=== PATIENT | female | born 1960 | race African-American/Black ===

== ENCOUNTER 2016-05-28 12:12 | Emergency (ER) | payer OTHER ==
[~2016-05-28 12:12] MED LIST: BUDE9TAB PO; CLON0.5T3 PO; CYCL15CA14 PO; DICY20TA3 PO; GLIM2TAB2 PO; IRON50VI2 IV; MESA1.2T PO; MESA4ENE3 RC; OMEG500C PO; OMEP40CA2 PO; ONDA4TAB10 PO; OXYC5CAP3 PO; RIZA10TA10 PO; TOPI50TA4 PO
[2016-05-28] MEDS ORDERED: IV NORMAL SALINE 1000ML BAG 1,000 ML IV SCH (13:23)
[2016-05-28] MEDS ORDERED: ONDANSETRON PF 4 MG/2 ML VIAL. IV ONE (13:30)
[2016-05-28] MEDS ORDERED: FENTANYL PF 100 MCG/2 ML VIAL. IV PRN (13:30)
[2016-05-28 13:37] LABS: BASO # 0.1 x10^3/uL (0.0-0.2); BASO % 1 % (0-3); BILIRUBIN,URINE NEGATIVE (NEG); EOS % 0 % (0-3); GLUCOSE,URINE NEGATIVE (NEG); HEMATOCRIT 40.2 % (36.0-47.0); HEMOGLOBIN 13.3 g/dL (12.0-15.5); LYMPH % 18 % (24-48); MEAN CORPUSCULAR HEMOGLOBIN 29 pg (25-35); MEAN CORPUSCULAR HGB CONC 33 g/dL (31-37); MEAN CORPUSCULAR VOLUME 89 fL (79-100); MONO % 10 % (0-9); NEUT % 72 % (31-73); NITRITE,URINE NEGATIVE (NEG); PH,URINE 6.5; PLATELET COUNT 196 x10^3/uL (140-400); PROTEIN,URINE NEGATIVE (NEG-TRACE); RED BLOOD COUNT 4.51 x10^6/uL (3.50-5.40); UROBILINOGEN,URINE 0.2 mg/dL (0.2 mg/dL); WHITE BLOOD COUNT 5.8 x10^3/uL (4.0-11.0)
[2016-05-28 13:50] LABS: CREATININE 0.6 mg/dL (0.6-1.0); GFR 124.7; POTASSIUM 3.1 mmol/L (3.5-5.1)
[2016-05-28 13:56] LABS: ALBUMIN 3.7 g/dL (3.4-5.0); ALBUMIN/GLOBULIN RATIO 1.1 (1.0-1.7); TOTAL BILIRUBIN 0.4 mg/dL (0.2-1.0); TOTAL PROTEIN 7.2 g/dL (6.4-8.2)
--- NOTE | 2016-05-28 14:07 | PHYS DOC ---
Past Medical History Past Medical History: Other Additional Past Medical Histor: TBI X3,ULCERATIVE COLITIS,GERD Past Surgical History: Cholecystectomy, Hysterectomy, Tonsillectomy, Other Additional Past Surgical Histo: Lt.shoulder,ocular implants, cataracts, rt.lumpectomy,septum, Alcohol Use: None Drug Use: None Adult General Chief Complaint Chief Complaint: FEVER HPI HPI Patient is a 55 year old female who presents with multiple complaints, however primary complaint is fever. Patient states her symptoms have been present since yesterday. Patient states that she had a cystoscopy 2 days ago that was uneventful. The patient states that starting yesterday she did not feel well which progressed to noticing a fever. Patient states that her temperature max at home was 100.4F. Patient states that she has had coughing that has not been productive of sputum. Patient also has had nausea and decreased appetite. Patient states that she has developed intermittent pelvic pain which she describes as sharp. Patient also states that she is having bilateral low back pain. The patient has been taking [id number] medication with no significant relief in symptoms. Patient came to the emergency department due to concerns for possible severe infection. Review of Systems Review of Systems Constitutional: Fever [] Eyes: Denies change in visual acuity, redness, or eye pain [] HENT: Sore throat [] Respiratory: Cough [] Cardiovascular: No additional information not addressed in HPI [] GI: Nausea, lower abdominal pain, denies vomiting, bloody stools or diarrhea [] : Denies dysuria or hematuria [] Musculoskeletal: Low back pain [] Integument: Denies rash or skin lesions [] Neurologic: Headache, denies focal weakness or sensory changes [] Endocrine: Denies polyuria or polydipsia [] Current Medications Current Medications Current Medications Medications (Trade) Dose Ordered Sig/Gus Start Time Stop Time Status Last Admin Dose Admin Fentanyl Citrate 50 mcg 50 mcg PRN Q15MIN PRN 05/28/16 13:30 05/28/16 18:03 DC 05/28/16 14:17 50 MCG Info (Do NOT chart on this entry -- for MONITORING) 1 each PRN DAILY PRN 05/28/16 15:15 05/28/16 18:03 DC Iohexol (Omnipaque 300 Mg/ml) 75 ml 1X ONCE 05/28/16 15:15 05/28/16 15:16 DC 05/28/16 15:28 75 ML Ondansetron HCl (Zofran) 4 mg 1X ONCE 05/28/16 13:30 05/28/16 13:31 DC 05/28/16 14:17 4 MG Oseltamivir Phosphate (Tamiflu) 75 mg 1X ONCE 05/28/16 17:15 05/28/16 17:16 DC 05/28/16 17:15 75 MG Potassium Chloride (Klor-Con) 40 meq 1X ONCE 05/28/16 17:15 05/28/16 17:16 DC 05/28/16 17:15 40 MEQ Sodium Chloride (Iv Sodium Chloride 0.9% 1000ml Bag) 1,000 ml @ 1,000 mls/hr Q1H 05/28/16 13:23 05/28/16 14:22 DC 05/28/16 13:23 1,000 MLS/HR Allergies Allergies Allergies Coded Allergies Type Severity Reaction Last Updated Verified pregabalin Allergy Severe unclear 11/02/14 Yes Sulfa (Sulfonamide Antibiotics) Allergy Intermediate unknown 11/02/14 Yes acetaminophen Allergy Intermediate unknown 11/02/14 Yes adhesive Allergy Intermediate 11/02/14 Yes amitriptyline Allergy Intermediate unknown 11/02/14 Yes budesonide Allergy Intermediate unknown 11/02/14 Yes chocolate flavor Allergy Intermediate sneeze, throat burn 11/02/14 Yes mirtazapine Allergy Intermediate unknown 11/02/14 Yes povidone-iodine Allergy Intermediate burning skin 11/02/14 Yes quetiapine Allergy Intermediate unknown 11/02/14 Yes tramadol Allergy Intermediate unknown 11/02/14 Yes NSAIDS (Non-Steroidal Anti-Inflamma Adverse Reaction Severe GIBLEED 11/02/14 Yes aspirin Adverse Reaction Severe gi bleeding 11/02/14 Yes fluoxetine Adverse Reaction Severe "made me want to cut my skin off with a knife" 11/02/14 Yes ibuprofen Adverse Reaction Severe GI BLEEDING 11/02/14 Yes trazodone Adverse Reaction Severe severe chest pain 11/02/14 Yes erythromycin base Adverse Reaction Intermediate vomit 11/02/14 Yes Physical Exam Physical Exam Constitutional: Alert, afebrile, appears in mild discomfort. [] HENT: Normocephalic, atraumatic, bilateral external ears normal, oropharynx erythematous, no oral exudates, nose normal. [] Eyes: PERRLA, EOMI, conjunctiva normal, no discharge. [] Neck: Normal range of motion, no tenderness, supple, no stridor. [] Cardiovascular:Heart rate regular rhythm, no murmur [] Lungs & Thorax: Bilateral breath sounds clear to auscultation [] Abdomen: Bowel sounds normal, soft, no tenderness, no masses, no pulsatile masses. [] Skin: Warm, dry, no erythema, no rash. [] Back: No tenderness, no CVA tenderness. [] Extremities: No tenderness, no cyanosis, no clubbing, ROM intact, no edema. [] Neurologic: Alert and oriented X 3, normal motor function, normal sensory function, no focal deficits noted. [] Current Patient Data Vital Signs Vital Signs Date Time Temp Pulse Resp B/P Pulse Ox O2 Delivery O2 Flow Rate FiO2 05/28/16 15:59 89 119/74 05/28/16 14:21 96 05/28/16 14:17 14 05/28/16 12:59 99.3 Room Air 99.3 Lab Values Laboratory Tests Test 05/28/16 13:25 05/28/16 14:13 05/28/16 14:19 05/28/16 14:32 White Blood Count 5.8x10^3/uL (4.0-11.0) Red Blood Count 4.51x10^6/uL (3.50-5.40) Hemoglobin 13.3g/dL (12.0-15.5) Hematocrit 40.2% (36.0-47.0) Mean Corpuscular Volume 89fL (79-100) Mean Corpuscular Hemoglobin 29pg (25-35) Mean Corpuscular Hemoglobin Concent 33g/dL (31-37) Red Cell Distribution Width 13.0% (11.5-14.5) Platelet Count 196x10^3/uL (140-400) Neutrophils (%) (Auto) 72% (31-73) Lymphocytes (%) (Auto) 18% (24-48) L Monocytes (%) (Auto) 10% (0-9) H Eosinophils (%) (Auto) 0% (0-3) Basophils (%) (Auto) 1% (0-3) Neutrophils # (Auto) 4.2x10^3uL (1.8-7.7) Lymphocytes # (Auto) 1.0x10^3/uL (1.0-4.8) Monocytes # (Auto) 0.6x10^3/uL (0.0-1.1) Eosinophils # (Auto) 0.0x10^3/uL (0.0-0.7) Basophils # (Auto) 0.1x10^3/uL (0.0-0.2) Urine Collection Type Unknown Urine Color Yellow Urine Clarity Clear Urine pH 6.5 Urine Specific [place] 1.010 Urine Protein Negativemg/dL (NEG-TRACE) Urine Glucose (UA) Negativemg/dL (NEG) Urine Ketones (Stick) Negativemg/dL (NEG) Urine Blood Moderate (NEG) Urine Nitrite Negative (NEG) Urine Bilirubin Negative (NEG) Urine Urobilinogen Dipstick 0.2mg/dL (0.2 mg/dL) Urine Leukocyte Esterase Negative (NEG) Urine RBC 20-40/HPF (0-2) Urine WBC 0/HPF (0-4) Urine Bacteria 0/HPF (0-FEW) Sodium Level 138mmol/L (136-145) Potassium Level 3.1mmol/L (3.5-5.1) L Chloride Level 101mmol/L (98-107) Carbon Dioxide Level 27mmol/L (21-32) Anion Gap 10 (6-14) Blood Urea Nitrogen 9mg/dL (7-20) Creatinine 0.6mg/dL (0.6-1.0) Estimated GFR (Cockcroft-Gault) 124.7 BUN/Creatinine Ratio 15 (6-20) Glucose Level 106mg/dL (70-99) H Calcium Level 9.0mg/dL (8.5-10.1) Total Bilirubin 0.4mg/dL (0.2-1.0) Aspartate Amino Transferase (AST) 33U/L (15-37) Alanine Aminotransferase (ALT) 57U/L (14-59) Alkaline Phosphatase 85U/L (46-116) Total Protein 7.2g/dL (6.4-8.2) Albumin 3.7g/dL (3.4-5.0) Albumin/Globulin Ratio 1.1 (1.0-1.7) Lipase 148U/L (73-393) Influenza Type A Antigen Positive (NEGATIVE) Influenza Type B Antigen Negative (NEGATIVE) Group A Streptococcus Rapid Negative (NEGATIVE) Glucose (Fingerstick) 98mg/dL (70-99) Laboratory Tests 05/28/16 13:25 Laboratory Tests 05/28/16 13:25 EKG EKG Not performed [] Radiology/Procedures Radiology/Procedures [facility] [address] [place] [address] IMAGING REPORT Signed PATIENT: MENG SMITH ACCOUNT: [id number] : 1960 LOCATION: ER AGE: 55 SEX: F EXAM STATUS: REG ER ORD. PHYSICIAN: TRISTON GARCIA MD REASON: cough, abdominal pain PROCEDURE: ACUTE ABDOMEN SERIES ACUTE ABDOMEN SERIES History:cough, abdominal pain, bladder pain and fever Comparison: 06/20/2012 Findings:Single view chest, single upright view of the abdomen, 2 supine views of abdomen are submitted. There is no infiltrate or pleural fluid. There has been cholecystectomy. No free air is identified. There is scattered stool in the colon. There are some segments of gas distended bowel more central abdominal region possibly in the small bowel although there is some gas in the colon. Impression: 1.There some gaseous distention of likely small bowel more central abdominal region, consideration of partial obstruction or segmental ileus. DICTATED and SIGNED BY: KARMA POOL MD DATE: 05/28/16 1405 CC: TRISTON GARCIA MD; AGA CHOI MD ~ [] Course & Med Decision Making Course & Med Decision Making Pertinent Labs and Imaging studies reviewed. (See chart for details) The patient was pending CT results at time of handoff. Care of patient was transferred to Dr. Alfred at 1530. Drag Disclaimer Dragon Disclaimer This electronic medical record was generated, in whole or in part, using a voice recognition dictation system. Departure Departure Impression: Primary Impression: Influenza A Disposition: 01 HOME, SELF-CARE Condition: IMPROVED Referrals: AGA CHOI MD (PCP) Scripts Oseltamivir Phosphate (Tamiflu)75 Mg Capsule1 Cap PO BID #[id number] CAP Prov:CALISTA ALFRED MD 05/28/16 TRISTON GARCIA MD May 28, 2016 14:06
--- NOTE | 2016-05-28 14:10 | RAD ---
ACUTE ABDOMEN SERIES History:cough, abdominal pain, bladder pain and fever Comparison: 06/20/2012 Findings:Single view chest, single upright view of the abdomen, 2 supine views of abdomen are submitted. There is no infiltrate or pleural fluid. There has been cholecystectomy. No free air is identified. There is scattered stool in the colon. There are some segments of gas distended bowel more central abdominal region possibly in the small bowel although there is some gas in the colon. Impression: 1.There some gaseous distention of likely small bowel more central abdominal region, consideration of partial obstruction or segmental ileus.
[2016-05-28 14:21] LABS: BACTERIA,URINE 0 /HPF (0-FEW); RBC,URINE 20-40 /HPF (0-2); WBC,URINE 0 /HPF (0-4)
[2016-05-28] MEDS ORDERED: CONTRAST GIVEN MC PRN (15:15)
[2016-05-28] MEDS ORDERED: IOHEXOL 300 MG/ML 75 ML VIAL IV ONE (15:15)
--- NOTE | 2016-05-28 15:53 | RAD ---
CT abdomen pelvis with contrast Indication: Bilateral flank pain and pelvic pain. Axial imaging through the abdomen and pelvis was performed after the administration of intravenous contrast. Correlation is made with prior CT from 06/20/2012. The lung bases are clear. The liver is unremarkable. The gallbladder is surgically absent. Pancreas and spleen are unremarkable. No adrenal mass is detected. Kidneys are unremarkable. The aorta is unremarkable. There is no ascites. There is a large amount of stool throughout the colon suggestive of constipation. The bladder and uterus are unremarkable. No acute inflammatory process in the abdomen or pelvis is identified. Impression: Moderate stool in the colon suggestive of constipation. The study is otherwise unremarkable. Electronically signed by: Santiago Harmon MD (May 28, 2016 15:51:24)
[2016-05-28 15:59] VITALS: BP 119/74
[2016-05-28 16:10] LABS: OBC FLU VALID
[2016-05-28] MEDS ORDERED: POTASSIUM CHLORIDE 20 MEQ TABLET.ER. PO ONE (17:15)
[2016-05-28] MEDS ORDERED: OSELTAMIVIR 75 MG CAPSULE PO ONE (17:15)
[2016-05-28] MEDS ORDERED: OSEL75CA PO (17:23)
--- NOTE | 2016-05-28 18:58 | EKG ---
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
[2016-05-29 10:52] LABS: NEGATIVE OBC STREP NEG; POSITIVE OBC STREP POS
== END 2016-05-28 18:03 | disposition home or self-care (01) ==
LOC: ER 12:12
DX: J09.X2 Influenza due to identified novel influenza A virus with other respiratory manifestations (principal); Z87.820 Personal history of traumatic brain injury; Z90.710 Acquired absence of both cervix and uterus; Z90.49 Acquired absence of other specified parts of digestive tract; Z88.2 Allergy status to sulfonamides; Z88.6 Allergy status to analgesic agent; Z88.1 Allergy status to other antibiotic agents; Z88.8 Allergy status to other drugs, medicaments and biological substances; Z91.018 Allergy to other foods
CPT/HCPCS: 36415; 74022; 74177; 80053; 81001; 82947; 83690; 85027; 87070; 87804; 87880; 93005; 96361; 96374; 96375; 99285; J2405; J3010; J7030; Q9967

== ENCOUNTER 2018-03-15 14:33 | Observation (INO) | payer OTHER ==
[~2018-03-15] VITALS: Ht 162.6 cm; Wt 94.5 kg
[~2018-03-15 14:33] MED LIST changes: +CLON0.5T11 PO; -CLON0.5T3 PO; -CYCL15CA14 PO; +CYCL15CA19 PO; +OSEL75CA PO; +OXYC5CAP PO; -OXYC5CAP3 PO; -TOPI50TA4 PO; +TOPI50TA8 PO
--- NOTE | 2018-03-15 15:01 | PHYS DOC ---
Past Medical History Past Medical History: Other Additional Past Medical Histor: TBI X3,ULCERATIVE COLITIS,GERD Past Surgical History: Cholecystectomy, Hysterectomy, Tonsillectomy, Other Additional Past Surgical Histo: Lt.shoulder,ocular implants, cataracts, rt.lumpectomy,septum, Alcohol Use: None Drug Use: None Adult General Chief Complaint Chief Complaint: CHEST PAIN HPI HPI Patient is a 57 year old F p/w two hours persistent chest pain diffuse pain, all across the chest. radiates into the neck and jaw area bilateral and also in the left shoudler. a/w sob lighteahdedness and some clamminess. diaphoresis noted. sublingual nitro was given. improved the pain 10--> 7/10. no hx of cad. pmh: dm, adrenal tumor? ulcerative colitis. sob slightly worse with lying flat. Review of Systems Review of Systems Constitutional: Denies fever or chills [] Eyes: Denies change in visual acuity, redness, or eye pain [] HENT: Denies nasal congestion or sore throat [] GI: Denies abdominal pain, nausea, vomiting, bloody stools or diarrhea [] : Denies dysuria or hematuria [] Musculoskeletal: Denies back pain or joint pain [] Integument: Denies rash or skin lesions [] Neurologic: Denies headache, focal weakness or sensory changes [] Endocrine: Denies polyuria or polydipsia [] All other systems were reviewed and found to be within normal limits, except as documented in this note. Current Medications Current Medications Current Medications Medications (Trade) Dose Ordered Sig/Gus Start Time Stop Time Status Last Admin Dose Admin Info (CONTRAST GIVEN -- Rx MONITORING) 1 each PRN DAILY PRN 03/15/18 16:30 03/17/18 16:29 Iohexol (Omnipaque 300 Mg/ml) 100 ml 1X ONCE 03/15/18 16:15 03/15/18 16:19 DC 03/15/18 16:28 100 ML Nitroglycerin (Nitrostat) 0.4 mg PRN Q5MIN PRN 03/15/18 17:30 Oxycodone HCl (Roxicodone) 10 mg 1X ONCE 03/15/18 17:00 03/15/18 17:01 DC 03/15/18 17:30 10 MG Allergies Allergies Allergies Coded Allergies Type Severity Reaction Last Updated Verified pregabalin Allergy Severe unclear 7/19/15 Yes Sulfa (Sulfonamide Antibiotics) Allergy Intermediate unknown 11/02/14 Yes acetaminophen Allergy Intermediate unknown 11/02/14 Yes adhesive Allergy Intermediate 11/02/14 Yes amitriptyline Allergy Intermediate unknown 11/02/14 Yes budesonide Allergy Intermediate unknown 11/02/14 Yes chocolate flavor Allergy Intermediate sneeze, throat burn 11/02/14 Yes mirtazapine Allergy Intermediate unknown 11/02/14 Yes povidone-iodine Allergy Intermediate burning skin 11/02/14 Yes quetiapine Allergy Intermediate unknown 11/02/14 Yes tramadol Allergy Intermediate unknown 11/02/14 Yes NSAIDS (Non-Steroidal Anti-Inflamma Adverse Reaction Severe GIBLEED 11/02/14 Yes aspirin Adverse Reaction Severe gi bleeding 11/02/14 Yes fluoxetine Adverse Reaction Severe "made me want to cut my skin off with a knife" 11/02/14 Yes ibuprofen Adverse Reaction Severe GI BLEEDING 11/02/14 Yes trazodone Adverse Reaction Severe severe chest pain 11/02/14 Yes erythromycin base Adverse Reaction Intermediate vomit 11/02/14 Yes Physical Exam Physical Exam Constitutional: Well developed, well nourished, no acute distress, non-toxic appearance. [] HENT: Normocephalic, atraumatic, bilateral external ears normal, oropharynx moist, no oral exudates, nose normal. [] Eyes: PERRLA, EOMI, conjunctiva normal, no discharge. [] Neck: Normal range of motion, no tenderness, supple, no stridor. [] Cardiovascular:Heart rate regular rhythm, no murmur [] Lungs & Thorax: Bilateral breath sounds clear to auscultation [] Abdomen: Bowel sounds normal, soft, mild nonspeicifc tenderness, no masses, no pulsatile masses. [] Skin: Warm, dry, no erythema, no rash. [] Back: No tenderness, no CVA tenderness. [] Extremities: No tenderness, no cyanosis, no clubbing, ROM intact, no edema. [] Neurologic: Alert and oriented X 3, normal motor function, normal sensory function, no focal deficits noted. [] Psychologic: Affect normal, judgement normal, mood normal. Current Patient Data Vital Signs Vital Signs Date Time Temp Pulse Resp B/P (MAP) Pulse Ox O2 Delivery O2 Flow Rate FiO2 03/15/18 15:50 76 18 136/77 (96) 98 Room Air 03/15/18 14:52 98.1 98.1 Lab Values Laboratory Tests Test 03/15/18 14:47 03/15/18 17:27 White Blood Count 8.1 x10^3/uL (4.0-11.0) Red Blood Count 4.79 x10^6/uL (3.50-5.40) Hemoglobin 14.7 g/dL (12.0-15.5) Hematocrit 43.0 % (36.0-47.0) Mean Corpuscular Volume 90 fL (79-100) Mean Corpuscular Hemoglobin 31 pg (25-35) Mean Corpuscular Hemoglobin Concent 34 g/dL (31-37) Red Cell Distribution Width 13.3 % (11.5-14.5) Platelet Count 268 x10^3/uL (140-400) Neutrophils (%) (Auto) 48 % (31-73) Lymphocytes (%) (Auto) 42 % (24-48) Monocytes (%) (Auto) 9 % (0-9) Eosinophils (%) (Auto) 1 % (0-3) Basophils (%) (Auto) 1 % (0-3) Neutrophils # (Auto) 3.9 x10^3uL (1.8-7.7) Lymphocytes # (Auto) 3.4 x10^3/uL (1.0-4.8) Monocytes # (Auto) 0.7 x10^3/uL (0.0-1.1) Eosinophils # (Auto) 0.1 x10^3/uL (0.0-0.7) Basophils # (Auto) 0.1 x10^3/uL (0.0-0.2) Prothrombin Time 11.6 SEC (11.7-14.0) L Prothrombin Time INR 0.9 (0.8-1.1) Sodium Level 140 mmol/L (136-145) Potassium Level 3.4 mmol/L (3.5-5.1) L Chloride Level 103 mmol/L (98-107) Carbon Dioxide Level 28 mmol/L (21-32) Anion Gap 9 (6-14) Blood Urea Nitrogen 14 mg/dL (7-20) Creatinine 0.8 mg/dL (0.6-1.0) Estimated GFR (Cockcroft-Gault) 88.8 BUN/Creatinine Ratio 18 (6-20) Glucose Level 117 mg/dL (70-99) H Calcium Level 9.5 mg/dL (8.5-10.1) Total Bilirubin 0.5 mg/dL (0.2-1.0) Aspartate Amino Transferase (AST) 18 U/L (15-37) Alanine Aminotransferase (ALT) 29 U/L (14-59) Alkaline Phosphatase 88 U/L (46-116) Troponin I Quantitative < 0.017 ng/mL (0.000-0.055) HH-Eje-Z-Type Natriuretic Peptide 31 pg/mL (0-124) Total Protein 7.9 g/dL (6.4-8.2) Albumin 4.2 g/dL (3.4-5.0) Albumin/Globulin Ratio 1.1 (1.0-1.7) Lipase 154 U/L (73-393) Glucose (Fingerstick) 85 mg/dL (70-99) Laboratory Tests 03/15/18 14:47 Laboratory Tests 03/15/18 14:47 EKG EKG nsr rate 81 no acute ischemic chagnes noted no stemi or st depression.s[] Radiology/Procedures Radiology/Procedures [] Impressions: IMPRESSION: 1. No aortic dissection. 2. Mild urinary bladder wall thickening and perivesical induration. Suggest correlation with urinalysis to exclude cystitis. 3. 8 mm groundglass nodule in the anterior left upper lobe. Recommend noncontrast CT chest in 6-12 months per Fleischner Society guidelines. 4. Left adrenal adenoma. 5. There is prominent intramural fat of the descending and sigmoid colon which may be sequela of prior inflammation. No evidence of acute colitis. Electronically signed by: Obinna Finney MD (03/15/2018 4:58 PM) [id number] DICTATED and SIGNED BY: Yao FINNEY Course & Med Decision Making Course & Med Decision Making Pertinent Labs and Imaging studies reviewed. (See chart for details) 57-year-old female multiple medical problems apparently borderline diabetic ulcerative colitis on Remicade and prednisone presenting with sudden onset chest pain really into the back. Patient is well-appearing in the emergency room however did have a somewhat concerning history and so CT dissection protocol was ordered which was negative. I did tell the patient and her family about the need for follow-up due to the lung nodule in addition I have added on a urinalysis and I recommended follow-up for the bladder wall thickening. Troponin and EKG are negative patient is well-appearing improved pain in the emergency room with nitroglycerin at this point time I spoke with Dr. García admitted to hospital for further evaluation of chest pain. Of note patient tells me that she is Slowly not able to get a regadenosine stress test. [] Dragon Disclaimer Dragon Disclaimer This electronic medical record was generated, in whole or in part, using a voice recognition dictation system. Departure Departure Impression: Primary Impression: Chest pain Disposition: ADMITTED INPATIENT Admitting Physician: Leelee Soni Condition: STABLE Referrals: AGA CHOI MD (PCP) NORMA ALMAGUER MD Mar 15, 2018 15:01
--- NOTE | 2018-03-15 15:02 | EKG ---
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
[2018-03-15 15:04] LABS: BASO # 0.1 x10^3/uL (0.0-0.2); BASO % 1 % (0-3); EOS # 0.1 x10^3/uL (0.0-0.7); EOS % 1 % (0-3); HEMOGLOBIN 14.7 g/dL (12.0-15.5); LYMPH # 3.4 x10^3/uL (1.0-4.8); LYMPH % 42 % (24-48); MEAN CORPUSCULAR HEMOGLOBIN 31 pg (25-35); MEAN CORPUSCULAR HGB CONC 34 g/dL (31-37); MEAN CORPUSCULAR VOLUME 90 fL (79-100); MONO # 0.7 x10^3/uL (0.0-1.1); MONO % 9 % (0-9); NEUT # 3.9 x10^3uL (1.8-7.7); NEUT % 48 % (31-73); PLATELET COUNT 268 x10^3/uL (140-400); RED BLOOD COUNT 4.79 x10^6/uL (3.50-5.40); RED CELL DISTRIBUTION WIDTH 13.3 % (11.5-14.5); WHITE BLOOD COUNT 8.1 x10^3/uL (4.0-11.0)
[2018-03-15 15:13] LABS: PROTHROMBIN TIME PATIENT 11.6 SEC (11.7-14.0)
[2018-03-15 15:20] LABS: CALCIUM 9.5 mg/dL (8.5-10.1); CREATININE 0.8 mg/dL (0.6-1.0); GFR 88.8; POTASSIUM 3.4 mmol/L (3.5-5.1)
[2018-03-15 15:26] LABS: ALBUMIN 4.2 g/dL (3.4-5.0); ALBUMIN/GLOBULIN RATIO 1.1 (1.0-1.7); TOTAL BILIRUBIN 0.5 mg/dL (0.2-1.0); TOTAL PROTEIN 7.9 g/dL (6.4-8.2)
--- NOTE | 2018-03-15 15:26 | RAD ---
Single view of the chest. 03/15/2018 3:00 PM Indication: CHEST AND BACK PAIN, SHORT OF AIR Comparison: None available Findings: There is no focal consolidation. There is no pleural effusion or pneumothorax. The cardiomediastinal silhouette and pulmonary vasculature are within normal limits. No acute osseous abnormalities are seen. Impression: No evidence of acute cardiopulmonary process. Electronically signed by: Abdullahi Mendoza MD (03/15/2018 3:23 PM) [id number]
[2018-03-15] MEDS ORDERED: IOHEXOL 300 MG/ML 100ML VIAL. IV ONE (16:15)
[2018-03-15] MEDS ORDERED: CONTRAST GIVEN. MC PRN (16:30)
[2018-03-15] MEDS ORDERED: oxyCODONE IR 5 MG TABLET PO ONE (17:00)
--- NOTE | 2018-03-15 17:02 | RAD ---
PQRS Compliance Statement: One or more of the following individualized dose reduction techniques were utilized for this examination: 1. Automated exposure control 2. Adjustment of the mA and/or kV according to patient size 3. Use of iterative reconstruction technique CT ANGIO CHEST ABD PELVIS Clinical Indication: SUDDEN ONSET CHEST NECK JAW SHOULDER PAIN, EPIGASTRIC PAIN Comparison: CT abdomen and pelvis with contrast, May 28, 2016. TECHNIQUE: Helical CT imaging of the chest abdomen and pelvis is performed before and after 100 cc of Omnipaque [address] angiogram protocol. 3-D MIP and volume rendering reconstructions of the aorta performed. Findings: On the precontrast images, there is no acute intramural hematoma of the aorta. There is no appreciable atherosclerotic disease. Aortic arch branches are patent. The great vessels are normal caliber. No large central pulmonary embolus. There is no aortic dissection. Abdominal aorta branches are patent. The abdominal aorta is normal in caliber. The iliac arteries and visualized femoral arteries are patent without focal stenosis. Thyroid is symmetric. There is no adenopathy in the chest. Cardiac size normal, no pericardial effusion. There is no pleural effusion. Central airways are patent. There is an 8 mm groundglass nodule in the anterior left upper lobe, image 33 of series 4. Minimal dependent atelectasis in the left lower lobe. Cholecystectomy. Liver, spleen, pancreas, and right adrenal gland are normal. There is 1.6 cm left adrenal adenoma. Kidneys enhance symmetrically, no hydronephrosis. Stomach unremarkable. Tiny duodenal diverticulum, image 112. Tiny fat-containing umbilical hernia. No dilated small bowel. Colon is decompressed, limiting evaluation. There is prominent intramural fat of the descending and sigmoid colon which may be sequela of prior inflammation. No colon wall thickening is identified. The appendix is normal. No abdominal adenopathy or free fluid. Mild urinary bladder wall thickening and perivesical induration. Uterus atrophic or surgically absent. Ovaries are symmetric. No pelvic free fluid. No compression fracture in the thoracolumbar spine. L1 vertebral body hemangioma. IMPRESSION: 1. No aortic dissection. 2. Mild urinary bladder wall thickening and perivesical induration. Suggest correlation with urinalysis to exclude cystitis. 3. 8 mm groundglass nodule in the anterior left upper lobe. Recommend noncontrast CT chest in 6-12 months per Fleischner Society guidelines. 4. Left adrenal adenoma. 5. There is prominent intramural fat of the descending and sigmoid colon which may be sequela of prior inflammation. No evidence of acute colitis. Electronically signed by: Obinna Finney MD (03/15/2018 4:58 PM) [id number]
[2018-03-15] MEDS ORDERED: NITROGLYCERIN SUBLINGUAL 0.4 MG BOTTLE OF 25. SL PRN (17:30)
[2018-03-15 18:18] LABS: BILIRUBIN,URINE NEGATIVE (NEG); CLARITY,URINE CLEAR; COLOR,URINE YELLOW; NITRITE,URINE NEGATIVE (NEG); PROTEIN,URINE NEGATIVE (NEG-TRACE); UROBILINOGEN,URINE 0.2 mg/dL (0.2 mg/dL)
[2018-03-15 18:36] LABS: BACTERIA,URINE 0 /HPF (0-FEW); WBC,URINE 0 /HPF (0-4)
[2018-03-15 19:04] VITALS: BP 149/80
[2018-03-15] MEDS ORDERED: LACT1CAP PO (20:28)
[2018-03-15] MEDS ORDERED: VALIUM10 MG PO (20:28)
[2018-03-15] MEDS ORDERED: PSYL1CAP4 PO (20:28)
[2018-03-15] MEDS ORDERED: INFL100V IV (20:28)
[2018-03-15] MEDS ORDERED: PANT40GR PO (20:28)
[2018-03-15] MEDS ORDERED: METH-37 PO (20:28)
[2018-03-15] MEDS ORDERED: CETI10TA22 PO (20:28)
[2018-03-15] MEDS ORDERED: MESA1.2T PO (20:28)
[2018-03-15] MEDS ORDERED: POTA10TA12 PO (20:28)
[2018-03-15] MEDS ORDERED: DIAZ5TAB PO (20:28)
[2018-03-15] MEDS ORDERED: SERT50TA8 PO (20:28)
[2018-03-15] MEDS ORDERED: CHOL10003 PO (20:28)
[2018-03-15] MEDS ORDERED: CYAN10005 PO (20:28)
[2018-03-15] MEDS ORDERED: OXYC10TA PO (20:28)
[2018-03-15] MEDS ORDERED: PRED-220 PO (20:28)
[2018-03-15] MEDS ORDERED: PSYLLIUM HUSK (SUGAR FREE) 1 PKT PACKET PO SCH (21:00)
[2018-03-15] MEDS ORDERED: OXYCODONE HCL 10 MG PO PRN (21:00)
[2018-03-15] MEDS ORDERED: METHOCARBAMOL 500 MG TABLET PO PRN (21:00)
[2018-03-15] MEDS ORDERED: diazePAM 5 MG TABLET PO SCH ×2 (21:00→21:15)
[2018-03-15] MEDS: POTASSIUM CHLORIDE 10 MEQ TABLET.ER. PO SCH (21:31)
[2018-03-15] MEDS: oxyCODONE IR 5 MG TABLET PO PRN (21:33)
[2018-03-15 22:04] VITALS: BP 120/74
--- NOTE | 2018-03-15 22:58 | HP ---
ADMIT DATE: 03/15/2018 CHIEF COMPLAINT: Chest pain. HISTORY OF PRESENT ILLNESS: The patient is a pleasant 57-year-old female who presents with 2 hours of chest pain. This has been persistent and diffuse, across her chest, radiates to the neck and jaw. She also has some left shoulder pain, rates it 10/10. She received some nitroglycerin that seemed to help a little. Moving makes it worse. I have discussed the case with the ER physician. We are going to admit the patient and consult Cardiology. PAST MEDICAL HISTORY: Traumatic brain injury, ulcerative colitis, GERD, cholecystectomy, hysterectomy, tonsillectomy, left shoulder surgery, cataract surgery, lumpectomy and nasal septum surgery. ALLERGIES: None. FAMILY HISTORY: Coronary artery disease. SOCIAL HISTORY: She does not drink, smoke or take drugs. MEDICATIONS: Reviewed. Please refer to the MRAD. She is on aspirin, vitamins and statins. REVIEW OF SYSTEMS: GENERAL: No history of weight change, weakness or fevers. SKIN: No bruising, hair changes or rashes. EYES: No blurred, double or loss of vision. NOSE AND THROAT: No history of nosebleeds, hoarseness or sore throat. HEART: No history of palpitations or shortness of breath on exertion. She complains of chest pain. LUNGS: Denies cough, hemoptysis, wheezing or shortness of breath. GASTROINTESTINAL: Denies changes in appetite, nausea, vomiting, diarrhea or constipation. GENITOURINARY: No history of frequency, urgency, hesitancy or nocturia. NEUROLOGIC: Denies history of numbness, tingling, tremor or weakness. PSYCHIATRIC: No history of panic, anxiety or depression. ENDOCRINE: No history of heat or cold intolerance, polyuria or polydipsia. EXTREMITIES: Denies muscle weakness, joint pain, pain on walking or stiffness. PHYSICAL EXAMINATION: VITAL SIGNS: Temperature afebrile, pulse 74, respirations 20 and blood pressure 133/91. GENERAL: She is alert, cooperative, anxious. HEART: Normal S1, S2, without murmurs. LUNGS: Clear to auscultation. ABDOMEN: Soft. Decreased bowel sounds. No organomegaly. EXTREMITIES: With 1+ edema. Pedal pulses are intact. SKIN: No rashes. ENDOCRINE: No thyromegaly. LYMPHATICS: No cervical nodes. HEMATOPOIETIC: No bruising. NEUROLOGIC: She is moving all extremities. PSYCHIATRIC: She is anxious. LABORATORY DATA: Troponin is 0. EKG shows sinus rhythm. ASSESSMENT AND PLAN: Chest pain, rule out coronary artery disease. The patient has been admitted. We will check serial enzymes and serial EKGs. Consult Cardiology, daily aspirin, cardiac monitoring, home meds, PT, OT and frequent labs. FRANCESCA HERNANDEZ DO DR: JUDE/micheal JOB#: [id number] / [id number]
[2018-03-16 03:00] VITALS: BP 100/60
[2018-03-16 04:33] LABS: CHOLESTEROL/HDL RATIO 4.4
[2018-03-16 07:00] VITALS: BP 119/55
[2018-03-16] MEDS ORDERED: PANTOPRAZOLE 40 MG TABLET.DR. PO SCH (07:30)
[2018-03-16] MEDS ORDERED: CETIRIZINE HCL 10 MG TABLET. PO SCH (08:00)
[2018-03-16] MEDS: oxyCODONE IR 5 MG TABLET PO PRN (08:05)
[2018-03-16] MEDS ORDERED: LACTOBACILLUS RHAMNOSUS GG 1 CAPSULE. PO SCH (09:00)
[2018-03-16] MEDS ORDERED: SERTRALINE 50 MG TABLET. PO SCH (09:00)
[2018-03-16] MEDS ORDERED: CHOLECALCIFEROL (VITAMIN D3) 1,000 UNIT TABLET PO SCH (09:00)
[2018-03-16] MEDS ORDERED: predniSONE 10 MG TABLET PO SCH (09:00)
[2018-03-16] MEDS ORDERED: diazePAM 5 MG TABLET PO SCH (09:00)
[2018-03-16] MEDS ORDERED: CYANOCOBALAMIN (VITAMIN B-12) 1,000 MCG TABLET. PO SCH (09:00)
[2018-03-16] MEDS ORDERED: MESALAMINE 1.2 GM TABLET.DR PO SCH (09:00)
--- NOTE | 2018-03-16 09:02 | PDOC2 ---
HUSSAIN WYLIE SAL[employer]OP[employer]OCIATE 03/16/18 0902: CARDIAC CONSULT DATE OF CONSULT Date of Consult DATE: 03/16/18 TIME: 08:46 REASON FOR CONSULT Reason for Consult: Chest pain REFERRING PHYSICIAN Referring Physician: Ema SOURCE Source: Chart review, Patient HISTORY OF PRESENT ILLNESS HISTORY OF PRESENT ILLNESS This is an anxious 57 yo female admitted for complains of chest pain. Reports that yesterday she was having multiple bouts of diarrhea ranging from losse to watery but no blood. She was belching a lot as well with occasional nausea, all started yesterday morning. She has been on remicade IV infusion with her 3rd dose 3 days ago for her ulcerative colitis. She is also on a tapering dose of prednisone. She has not been sleeping well and takes valium every night and takes opioid and has been chronic for this and last night as an inpt was asking multiple times for dilaudid. There has been no changes to her activity tolerance but admits being tired during the day with ESTRELLA at times. She snores and has insomnia. Yesterday around 1 PM she started having mid chest pressure that radiates to her immediate back. It did go to her neck and both shoulders and felt some SOA.. Denies any palpitations and no recent injury or falls. PAST MEDICAL HISTORY Cardiovascular: Hyperlipidemia, Other (orthostasis) CENTRAL NERVOUS SYSTEM: Periperal neuropathy, Other (TBI) GI: Inflam bowel disease PAST SURGICAL HISTORY Past Surgical History: Arthroscopy (left shoulder), Cholecystectomy, Cataract Removal, Tonsillectomy, Hysterectomy, Other (nasal septum repair) FAMILY HISTORY Family History: Coronary Artery Disease (mother), Diabetes SOCIAL HISTORY Smoke: No ALCOHOL: other (2 shots of wine biweekly) Drugs: None Lives: with Family CURRENT MEDICATIONS CURRENT MEDICATIONS Current Medications Medications (Trade) Dose Ordered Sig/Gus Route PRN Reason Start Time Stop Time Status Last Admin Dose Admin Iohexol (Omnipaque 300 Mg/ml) 100 ml 1X ONCE IV 03/15/18 16:15 03/15/18 16:19 DC 03/15/18 16:28 Oxycodone HCl (Roxicodone) 10 mg 1X ONCE PO 03/15/18 17:00 03/15/18 17:01 DC 03/15/18 17:30 Oxycodone HCl (Roxicodone) 10 mg PRN Q4HRS PRN PO PAIN 03/15/18 21:00 03/16/18 08:05 Diazepam (Valium) 5 mg DAILY PO 03/16/18 09:00 03/16/18 08:05 Potassium Chloride (Klor-Con) 10 meq BID PO 03/15/18 21:00 03/15/18 21:31 Prednisone (Prednisone) 10 mg QODAY PO 03/16/18 09:00 03/16/18 08:05 Sertraline HCl (Zoloft) 50 mg DAILY PO 03/16/18 09:00 03/16/18 08:04 Pantoprazole Sodium (Protonix) 40 mg DAILYAC PO 03/16/18 07:30 03/16/18 08:05 Diazepam (Valium) 10 mg HS PO 03/15/18 21:00 03/15/18 21:31 ALLERGIES ALLERGIES: Coded Allergies: pregabalin (Verified Allergy, Severe, unclear, 11/02/14) Sulfa (Sulfonamide Antibiotics) (Verified Allergy, Intermediate, unknown, 11/02/14) acetaminophen (Verified Allergy, Intermediate, unknown, 11/02/14) adhesive (Verified Allergy, Intermediate, 11/02/14) amitriptyline (Verified Allergy, Intermediate, unknown, 11/02/14) budesonide (Verified Allergy, Intermediate, unknown, 11/02/14) chocolate flavor (Verified Allergy, Intermediate, sneeze, throat burn, ) mirtazapine (Verified Allergy, Intermediate, unknown, 11/02/14) povidone-iodine (Verified Allergy, Intermediate, burning skin, 11/02/14) quetiapine (Verified Allergy, Intermediate, unknown, 11/02/14) tramadol (Verified Allergy, Intermediate, unknown, 11/02/14) NSAIDS (Non-Steroidal Anti-Inflamma (Verified Adverse Reaction, Severe, GIBLEED, 11/02/14) aspirin (Verified Adverse Reaction, Severe, gi bleeding, 11/02/14) states" my gi bleeding is in remission now." fluoxetine (Verified Adverse Reaction, Severe, "made me want to cut my skin off with a knife", 11/02/14) ibuprofen (Verified Adverse Reaction, Severe, GI BLEEDING, 11/02/14) "GI BLEEDING IS CURRENTLY IN REMISSION" trazodone (Verified Adverse Reaction, Severe, severe chest pain, 11/02/14) erythromycin base (Verified Adverse Reaction, Intermediate, vomit, 11/02/14 ) ROS Review of System 14 point ROS evaluated with pertinent positives noted per HPI PHYSICAL EXAM General: Alert, Oriented X3, Cooperative, No acute distress HEENT: Mucous membr. moist/pink Lungs: Clear to auscultation, Normal air movement Heart: Regular rate (SR), Normal S1, Normal S2, No murmurs Abdomen: Soft, No tenderness Extremities: No cyanosis, No edema Skin: No breakdown, No significant lesion Neuro: Normal speech, Sensation intact Psych/Mental Status: Mental status NL, Mood NL MUSCULOSKELETAL: Osteoarthritic changes both hands VITALS VITALS Vital Signs Date Time Temp Pulse Resp B/P (MAP) Pulse Ox O2 Delivery O2 Flow Rate FiO2 03/16/18 08:05 20 96 03/16/18 07:00 98.0 69 119/55 (76) Room Air 98.0 LABS Lab: Laboratory Tests Test 03/15/18 14:47 03/15/18 17:27 03/15/18 18:05 03/15/18 20:29 White Blood Count 8.1 x10^3/uL (4.0-11.0) Red Blood Count 4.79 x10^6/uL (3.50-5.40) Hemoglobin 14.7 g/dL (12.0-15.5) Hematocrit 43.0 % (36.0-47.0) Mean Corpuscular Volume 90 fL (79-100) Mean Corpuscular Hemoglobin 31 pg (25-35) Mean Corpuscular Hemoglobin Concent 34 g/dL (31-37) Red Cell Distribution Width 13.3 % (11.5-14.5) Platelet Count 268 x10^3/uL (140-400) Neutrophils (%) (Auto) 48 % (31-73) Lymphocytes (%) (Auto) 42 % (24-48) Monocytes (%) (Auto) 9 % (0-9) Eosinophils (%) (Auto) 1 % (0-3) Basophils (%) (Auto) 1 % (0-3) Neutrophils # (Auto) 3.9 x10^3uL (1.8-7.7) Lymphocytes # (Auto) 3.4 x10^3/uL (1.0-4.8) Monocytes # (Auto) 0.7 x10^3/uL (0.0-1.1) Eosinophils # (Auto) 0.1 x10^3/uL (0.0-0.7) Basophils # (Auto) 0.1 x10^3/uL (0.0-0.2) Prothrombin Time 11.6 SEC (11.7-14.0) Prothromb Time International Ratio 0.9 (0.8-1.1) Sodium Level 140 mmol/L (136-145) Potassium Level 3.4 mmol/L (3.5-5.1) Chloride Level 103 mmol/L (98-107) Carbon Dioxide Level 28 mmol/L (21-32) Anion Gap 9 (6-14) Blood Urea Nitrogen 14 mg/dL (7-20) Creatinine 0.8 mg/dL (0.6-1.0) Estimated GFR (Cockcroft-Gault) 88.8 BUN/Creatinine Ratio 18 (6-20) Glucose Level 117 mg/dL (70-99) Calcium Level 9.5 mg/dL (8.5-10.1) Total Bilirubin 0.5 mg/dL (0.2-1.0) Aspartate Amino Transf (AST/SGOT) 18 U/L (15-37) Alanine Aminotransferase (ALT/SGPT) 29 U/L (14-59) Alkaline Phosphatase 88 U/L (46-116) Troponin I Quantitative < 0.017 ng/mL (0.000-0.055) WI-Qwa-C-Type Natriuretic Peptide 31 pg/mL (0-124) Total Protein 7.9 g/dL (6.4-8.2) Albumin 4.2 g/dL (3.4-5.0) Albumin/Globulin Ratio 1.1 (1.0-1.7) Lipase 154 U/L (73-393) Glucose (Fingerstick) 85 mg/dL (70-99) 158 mg/dL (70-99) Urine Collection Type Unknown Urine Color Yellow Urine Clarity Clear Urine pH 6.0 Urine Specific [place] >=1.030 Urine Protein Negative mg/dL (NEG-TRACE) Urine Glucose (UA) Negative mg/dL (NEG) Urine Ketones (Stick) Negative mg/dL (NEG) Urine Blood Small (NEG) Urine Nitrite Negative (NEG) Urine Bilirubin Negative (NEG) Urine Urobilinogen Dipstick 0.2 mg/dL (0.2 mg/dL) Urine Leukocyte Esterase Negative (NEG) Urine RBC 6-10 /HPF (0-2) Urine WBC 0 /HPF (0-4) Urine Bacteria 0 /HPF (0-FEW) Test 03/15/18 20:45 03/16/18 03:30 03/16/18 07:27 Troponin I Quantitative < 0.017 ng/mL (0.000-0.055) < 0.017 ng/mL (0.000-0.055) Triglycerides Level 190 mg/dL (0-150) Cholesterol Level 259 mg/dL (0-200) LDL Cholesterol, Calculated 162 mg/dL (0-100) VLDL Cholesterol, Calculated 38 mg/dL (0-40) Non-HDL Cholesterol Calculated 200 mg/dL (0-129) HDL Cholesterol 59 mg/dL (40-60) Cholesterol/HDL Ratio 4.4 Glucose (Fingerstick) 91 mg/dL (70-99) ASSESSMENT/PLAN ASSESSMENT/PLAN 1. Chest pain: mixed features. doubt ACS. suspect significant dyspepsia likely exacerbated by remicade and prednisone treatment 2. Opioid seeking behavior: on oxycodone at home, asking for dilaudid last night 3. Presyncope: vasovagal. BP has been stable all night, no arrhythmias 4. Ulcerative colitis/diarrhea: multiple loose/watery stools/significant belching yesterday 5. Suspect ARIANA 6. Obesity 7. Uncontrolled anxiety: contributing to her symptoms as well. defer to PCP 8. HLP Recommendations 1. Recommend outpt ARIANA workup 2. TTE today and note WM and EF. If unremarkable may DC per cardiac standpoint. 3. Push PO fluids. Continue with PPI. Follow up with her GI specialist. Will defer to PCP. 4. Would recommend statin therapy. 5. Tropoinin has been normal, EKG SR without acute changes. Address GI symptoms per PCP and symptoms persist as an outpt then will consider for outpt stress test EDA CRUM MD 03/16/18 188: CARDIAC CONSULT ASSESSMENT/PLAN ASSESSMENT/PLAN Patient seen and examined. Agree with WOUND CARE RN's assessment and plan. CP with mixed features GA ruled out 2D echo showed normal LVF without any WMA Plan for ischemic eval as outpatient Thank you for your consultation HUSSAIN WYLIE APRN Mar 16, 2018 09:02 EDA CRUM MD Mar 16, 2018 19:11
[2018-03-16] MEDS: POTASSIUM CHLORIDE 10 MEQ TABLET.ER. PO SCH (09:06)
[2018-03-16 11:00] VITALS: BP 126/74
--- NOTE | 2018-03-16 11:28 | PDOC ---
PROGRESS NOTES Chief Complaint Chief Complaint Chest pain History of Present Illness History of Present Illness Seen and examined patient this morning. Discussed with patient that she is scheduled for an Echo today and if normal expect to discharge home. Her was present Vitals Vitals Vital Signs Date Time Temp Pulse Resp B/P (MAP) Pulse Ox O2 Delivery O2 Flow Rate FiO2 03/16/18 09:05 18 96 Room Air 03/16/18 07:00 98.0 69 119/55 (76) 98.0 Physical Exam General: Alert, Oriented X3, Cooperative, No acute distress Heart: Regular rate (SR), Normal S1, Normal S2, No murmurs Abdomen: Soft, No tenderness Extremities: No cyanosis, No edema Skin: No breakdown, No significant lesion Labs LABS Laboratory Tests Test 03/15/18 14:47 03/15/18 17:27 03/15/18 18:05 03/15/18 20:29 White Blood Count 8.1 x10^3/uL (4.0-11.0) Red Blood Count 4.79 x10^6/uL (3.50-5.40) Hemoglobin 14.7 g/dL (12.0-15.5) Hematocrit 43.0 % (36.0-47.0) Mean Corpuscular Volume 90 fL (79-100) Mean Corpuscular Hemoglobin 31 pg (25-35) Mean Corpuscular Hemoglobin Concent 34 g/dL (31-37) Red Cell Distribution Width 13.3 % (11.5-14.5) Platelet Count 268 x10^3/uL (140-400) Neutrophils (%) (Auto) 48 % (31-73) Lymphocytes (%) (Auto) 42 % (24-48) Monocytes (%) (Auto) 9 % (0-9) Eosinophils (%) (Auto) 1 % (0-3) Basophils (%) (Auto) 1 % (0-3) Neutrophils # (Auto) 3.9 x10^3uL (1.8-7.7) Lymphocytes # (Auto) 3.4 x10^3/uL (1.0-4.8) Monocytes # (Auto) 0.7 x10^3/uL (0.0-1.1) Eosinophils # (Auto) 0.1 x10^3/uL (0.0-0.7) Basophils # (Auto) 0.1 x10^3/uL (0.0-0.2) Prothrombin Time 11.6 SEC (11.7-14.0) Prothromb Time International Ratio 0.9 (0.8-1.1) Sodium Level 140 mmol/L (136-145) Potassium Level 3.4 mmol/L (3.5-5.1) Chloride Level 103 mmol/L (98-107) Carbon Dioxide Level 28 mmol/L (21-32) Anion Gap 9 (6-14) Blood Urea Nitrogen 14 mg/dL (7-20) Creatinine 0.8 mg/dL (0.6-1.0) Estimated GFR (Cockcroft-Gault) 88.8 BUN/Creatinine Ratio 18 (6-20) Glucose Level 117 mg/dL (70-99) Calcium Level 9.5 mg/dL (8.5-10.1) Total Bilirubin 0.5 mg/dL (0.2-1.0) Aspartate Amino Transf (AST/SGOT) 18 U/L (15-37) Alanine Aminotransferase (ALT/SGPT) 29 U/L (14-59) Alkaline Phosphatase 88 U/L (46-116) Troponin I Quantitative < 0.017 ng/mL (0.000-0.055) UZ-Oun-C-Type Natriuretic Peptide 31 pg/mL (0-124) Total Protein 7.9 g/dL (6.4-8.2) Albumin 4.2 g/dL (3.4-5.0) Albumin/Globulin Ratio 1.1 (1.0-1.7) Lipase 154 U/L (73-393) Glucose (Fingerstick) 85 mg/dL (70-99) 158 mg/dL (70-99) Urine Collection Type Unknown Urine Color Yellow Urine Clarity Clear Urine pH 6.0 Urine Specific [place] >=1.030 Urine Protein Negative mg/dL (NEG-TRACE) Urine Glucose (UA) Negative mg/dL (NEG) Urine Ketones (Stick) Negative mg/dL (NEG) Urine Blood Small (NEG) Urine Nitrite Negative (NEG) Urine Bilirubin Negative (NEG) Urine Urobilinogen Dipstick 0.2 mg/dL (0.2 mg/dL) Urine Leukocyte Esterase Negative (NEG) Urine RBC 6-10 /HPF (0-2) Urine WBC 0 /HPF (0-4) Urine Bacteria 0 /HPF (0-FEW) Test 03/15/18 20:45 03/16/18 03:30 03/16/18 07:27 Troponin I Quantitative < 0.017 ng/mL (0.000-0.055) < 0.017 ng/mL (0.000-0.055) Triglycerides Level 190 mg/dL (0-150) Cholesterol Level 259 mg/dL (0-200) LDL Cholesterol, Calculated 162 mg/dL (0-100) VLDL Cholesterol, Calculated 38 mg/dL (0-40) Non-HDL Cholesterol Calculated 200 mg/dL (0-129) HDL Cholesterol 59 mg/dL (40-60) Cholesterol/HDL Ratio 4.4 Glucose (Fingerstick) 91 mg/dL (70-99) Review of Systems Review of Systems Heart: chest pain reported to be better today GI: denies nausea/vomiting Lung: Denies soa Assessment and Plan Assessmemt and Plan Assessment: 1. Atypical angina (possible GERD) Plan: 1. Echo today 2. serial enzymes 3. serial EKGs 4. PT/OT 5. home meds 6. frequent labs 7. probable discharge pending echo results. Comment Review of Relevant I have reviewed the following items violette (where applicable) has been applied. Labs Laboratory Tests Test 03/15/18 14:47 03/15/18 17:27 03/15/18 18:05 03/15/18 20:29 White Blood Count 8.1 x10^3/uL (4.0-11.0) Red Blood Count 4.79 x10^6/uL (3.50-5.40) Hemoglobin 14.7 g/dL (12.0-15.5) Hematocrit 43.0 % (36.0-47.0) Mean Corpuscular Volume 90 fL (79-100) Mean Corpuscular Hemoglobin 31 pg (25-35) Mean Corpuscular Hemoglobin Concent 34 g/dL (31-37) Red Cell Distribution Width 13.3 % (11.5-14.5) Platelet Count 268 x10^3/uL (140-400) Neutrophils (%) (Auto) 48 % (31-73) Lymphocytes (%) (Auto) 42 % (24-48) Monocytes (%) (Auto) 9 % (0-9) Eosinophils (%) (Auto) 1 % (0-3) Basophils (%) (Auto) 1 % (0-3) Neutrophils # (Auto) 3.9 x10^3uL (1.8-7.7) Lymphocytes # (Auto) 3.4 x10^3/uL (1.0-4.8) Monocytes # (Auto) 0.7 x10^3/uL (0.0-1.1) Eosinophils # (Auto) 0.1 x10^3/uL (0.0-0.7) Basophils # (Auto) 0.1 x10^3/uL (0.0-0.2) Prothrombin Time 11.6 SEC (11.7-14.0) Prothromb Time International Ratio 0.9 (0.8-1.1) Sodium Level 140 mmol/L (136-145) Potassium Level 3.4 mmol/L (3.5-5.1) Chloride Level 103 mmol/L (98-107) Carbon Dioxide Level 28 mmol/L (21-32) Anion Gap 9 (6-14) Blood Urea Nitrogen 14 mg/dL (7-20) Creatinine 0.8 mg/dL (0.6-1.0) Estimated GFR (Cockcroft-Gault) 88.8 BUN/Creatinine Ratio 18 (6-20) Glucose Level 117 mg/dL (70-99) Calcium Level 9.5 mg/dL (8.5-10.1) Total Bilirubin 0.5 mg/dL (0.2-1.0) Aspartate Amino Transf (AST/SGOT) 18 U/L (15-37) Alanine Aminotransferase (ALT/SGPT) 29 U/L (14-59) Alkaline Phosphatase 88 U/L (46-116) Troponin I Quantitative < 0.017 ng/mL (0.000-0.055) AP-Ger-U-Type Natriuretic Peptide 31 pg/mL (0-124) Total Protein 7.9 g/dL (6.4-8.2) Albumin 4.2 g/dL (3.4-5.0) Albumin/Globulin Ratio 1.1 (1.0-1.7) Lipase 154 U/L (73-393) Glucose (Fingerstick) 85 mg/dL (70-99) 158 mg/dL (70-99) Urine Collection Type Unknown Urine Color Yellow Urine Clarity Clear Urine pH 6.0 Urine Specific [place] >=1.030 Urine Protein Negative mg/dL (NEG-TRACE) Urine Glucose (UA) Negative mg/dL (NEG) Urine Ketones (Stick) Negative mg/dL (NEG) Urine Blood Small (NEG) Urine Nitrite Negative (NEG) Urine Bilirubin Negative (NEG) Urine Urobilinogen Dipstick 0.2 mg/dL (0.2 mg/dL) Urine Leukocyte Esterase Negative (NEG) Urine RBC 6-10 /HPF (0-2) Urine WBC 0 /HPF (0-4) Urine Bacteria 0 /HPF (0-FEW) Test 03/15/18 20:45 03/16/18 03:30 03/16/18 07:27 Troponin I Quantitative < 0.017 ng/mL (0.000-0.055) < 0.017 ng/mL (0.000-0.055) Triglycerides Level 190 mg/dL (0-150) Cholesterol Level 259 mg/dL (0-200) LDL Cholesterol, Calculated 162 mg/dL (0-100) VLDL Cholesterol, Calculated 38 mg/dL (0-40) Non-HDL Cholesterol Calculated 200 mg/dL (0-129) HDL Cholesterol 59 mg/dL (40-60) Cholesterol/HDL Ratio 4.4 Glucose (Fingerstick) 91 mg/dL (70-99) Laboratory Tests Test 03/15/18 14:47 03/15/18 17:27 03/15/18 18:05 03/15/18 20:29 White Blood Count 8.1 x10^3/uL (4.0-11.0) Red Blood Count 4.79 x10^6/uL (3.50-5.40) Hemoglobin 14.7 g/dL (12.0-15.5) Hematocrit 43.0 % (36.0-47.0) Mean Corpuscular Volume 90 fL (79-100) Mean Corpuscular Hemoglobin 31 pg (25-35) Mean Corpuscular Hemoglobin Concent 34 g/dL (31-37) Red Cell Distribution Width 13.3 % (11.5-14.5) Platelet Count 268 x10^3/uL (140-400) Neutrophils (%) (Auto) 48 % (31-73) Lymphocytes (%) (Auto) 42 % (24-48) Monocytes (%) (Auto) 9 % (0-9) Eosinophils (%) (Auto) 1 % (0-3) Basophils (%) (Auto) 1 % (0-3) Neutrophils # (Auto) 3.9 x10^3uL (1.8-7.7) Lymphocytes # (Auto) 3.4 x10^3/uL (1.0-4.8) Monocytes # (Auto) 0.7 x10^3/uL (0.0-1.1) Eosinophils # (Auto) 0.1 x10^3/uL (0.0-0.7) Basophils # (Auto) 0.1 x10^3/uL (0.0-0.2) Prothrombin Time 11.6 SEC (11.7-14.0) Prothromb Time International Ratio 0.9 (0.8-1.1) Sodium Level 140 mmol/L (136-145) Potassium Level 3.4 mmol/L (3.5-5.1) Chloride Level 103 mmol/L (98-107) Carbon Dioxide Level 28 mmol/L (21-32) Anion Gap 9 (6-14) Blood Urea Nitrogen 14 mg/dL (7-20) Creatinine 0.8 mg/dL (0.6-1.0) Estimated GFR (Cockcroft-Gault) 88.8 BUN/Creatinine Ratio 18 (6-20) Glucose Level 117 mg/dL (70-99) Calcium Level 9.5 mg/dL (8.5-10.1) Total Bilirubin 0.5 mg/dL (0.2-1.0) Aspartate Amino Transf (AST/SGOT) 18 U/L (15-37) Alanine Aminotransferase (ALT/SGPT) 29 U/L (14-59) Alkaline Phosphatase 88 U/L (46-116) Troponin I Quantitative < 0.017 ng/mL (0.000-0.055) SF-Fak-P-Type Natriuretic Peptide 31 pg/mL (0-124) Total Protein 7.9 g/dL (6.4-8.2) Albumin 4.2 g/dL (3.4-5.0) Albumin/Globulin Ratio 1.1 (1.0-1.7) Lipase 154 U/L (73-393) Glucose (Fingerstick) 85 mg/dL (70-99) 158 mg/dL (70-99) Urine Collection Type Unknown Urine Color Yellow Urine Clarity Clear Urine pH 6.0 Urine Specific [place] >=1.030 Urine Protein Negative mg/dL (NEG-TRACE) Urine Glucose (UA) Negative mg/dL (NEG) Urine Ketones (Stick) Negative mg/dL (NEG) Urine Blood Small (NEG) Urine Nitrite Negative (NEG) Urine Bilirubin Negative (NEG) Urine Urobilinogen Dipstick 0.2 mg/dL (0.2 mg/dL) Urine Leukocyte Esterase Negative (NEG) Urine RBC 6-10 /HPF (0-2) Urine WBC 0 /HPF (0-4) Urine Bacteria 0 /HPF (0-FEW) Test 03/15/18 20:45 03/16/18 03:30 03/16/18 07:27 Troponin I Quantitative < 0.017 ng/mL (0.000-0.055) < 0.017 ng/mL (0.000-0.055) Triglycerides Level 190 mg/dL (0-150) Cholesterol Level 259 mg/dL (0-200) LDL Cholesterol, Calculated 162 mg/dL (0-100) VLDL Cholesterol, Calculated 38 mg/dL (0-40) Non-HDL Cholesterol Calculated 200 mg/dL (0-129) HDL Cholesterol 59 mg/dL (40-60) Cholesterol/HDL Ratio 4.4 Glucose (Fingerstick) 91 mg/dL (70-99) Medications Current Medications Iohexol (Omnipaque 300 Mg/ml) 100 ml 1X ONCE IV Last administered on at 16:28; Start 03/15/18 at 16:15; Stop 03/15/18 at 16:19; Status DC Info (CONTRAST GIVEN -- Rx MONITORING) 1 each PRN DAILY PRN MC SEE COMMENTS; Start 03/15/18 at 16:30; Stop 03/17/18 at 16:29 Oxycodone HCl (Roxicodone) 10 mg 1X ONCE PO Last administered on 03/15/18at 17 :30; Start 03/15/18 at 17:00; Stop 03/15/18 at 17:01; Status DC Nitroglycerin (Nitrostat) 0.4 mg PRN Q5MIN PRN SL CHEST PAIN; Start 03/15/18 at 17:30 Oxycodone HCl (Roxicodone) 10 mg PRN Q4HRS PRN PO PAIN Last administered on 08:05; Start 03/15/18 at 21:00 Cetirizine HCl (ZyrTEC) 10 mg DAILY08 PO Last administered on 03/16/18at 09:07 ; Start 03/16/18 at 08:00 Vitamin D (Vitamin D3) 1,000 unit DAILY PO Last administered on 03/16/18at 09: 06; Start 03/16/18 at 09:00 Cyanocobalamin (Vitamin B-12) 2,500 mcg DAILY PO ; Start 03/16/18 at 09:00 Diazepam (Valium) 5 mg DAILY PO Last administered on 03/16/18at 08:05; Start 03/16/18 at 09:00 Infliximab (Remicade) 400 mg QMONTH IV ; Start 04/14/18 at 09:00; Status UNV Mesalamine (Lialda) 2.4 gm DAILY PO Last administered on 03/16/18at 09:06; Start 03/16/18 at 09:00 Methocarbamol (Robaxin) 500 mg PRN Q4HRS PRN PO MUSCLE PAIN; Start 03/15/18 at 21:00 Potassium Chloride (Klor-Con) 10 meq BID PO Last administered on 03/16/18at 09: 06; Start 03/15/18 at 21:00 Prednisone (Prednisone) 10 mg QODAY PO Last administered on 03/16/18at 08:05; Start 03/16/18 at 09:00 Sertraline HCl (Zoloft) 50 mg DAILY PO Last administered on 03/16/18at 08:04; Start 03/16/18 at 09:00 Diazepam (Valium) 5 mg HS PO ; Start 03/15/18 at 21:15; Stop 03/15/18 at 21:15 ; Status DC Lactobacillus Rhamnosus (Culturelle) 1 cap BID PO Last administered on at 09:07; Start 03/16/18 at 09:00 Non-Formulary Medication (Oxycodone Hcl (Oxycodone Hcl Immed.release)) 10 mg PRN BID PRN PO PAIN; Start 03/15/18 at 21:00; Status UNV Pantoprazole Sodium (Protonix) 40 mg DAILYAC PO Last administered on at 08:05; Start 03/16/18 at 07:30 Psyllium Hydrophilic Mucilloid (Metamucil Fiber Packet) 1 pkt HS PO ; Start at 21:00 Diazepam (Valium) 10 mg HS PO Last administered on 03/15/18at 21:31; Start at 21:00 Active Scripts Active Reported Zyrtec (Cetirizine Hcl) 10 Mg Tablet 1 Tab PO DAILY08 Lialda (Mesalamine) 1.2 Gm Tablet.dr 2 Tab PO DAILY Remicade (Infliximab) 100 Mg Vial 400 Mg IV QMONTH Prednisone (Prednisone) 10 Mg Tablet 10 Mg PO QODAY Vsl#3 Capsule (Lact Cmb2/S.thermophl/Bif Cmb1) 1 Each Capsule 1 Each PO DAILY Metamucil Plus Calcium Capsule (Psyllium Husk/Ca Carbonate) 1 Each Capsule 1 Each PO HS Valium (Diazepam) 5 Mg Tablet 5 Mg PO DAILY Valium (Diazepam) 10 Mg Tablet 10 Mg PO HS Sertraline Hcl 50 Mg Tablet 50 Mg PO DAILY Oxycodone Hcl Immed.release (Oxycodone Hcl) 10 Mg Tablet 10 Mg PO PRN BID PRN Robaxin (Methocarbamol) 500 Mg Tablet 1 Tab PO PRN Q4HRS PRN Potassium Chloride 10 Meq Tab.sr.24h 10 Meq PO BID Protonix (Pantoprazole Sodium) 40 Mg Granpkt.dr 40 Mg PO DAILY Vitamin B-12 (Cyanocobalamin (Vitamin B-12)) 1,000 Mcg Tablet 2.5 Tab PO DAILY Vitamin D3 (Cholecalciferol (Vitamin D3)) 1,000 Unit Tablet 1 Tab PO DAILY Vitals/I & O Vital Sign - Last 24 Hours 03/15/18 03/15/18 03/15/18 03/15/18 14:52 15:50 17:45 18:30 Temp 98.1 98.1 Pulse 82 76 75 Resp 18 18 18 18 B/P (MAP) 136/77 (96) 136/77 (96) 141/68 (92) Pulse Ox 100 98 100 100 O2 Delivery Room Air Room Air Room Air Room Air 03/15/18 03/15/18 03/15/18 03/16/18 19:04 21:33 22:04 03:00 Temp 99.1 98.1 98.2 99.1 98.1 98.2 Pulse 88 74 69 Resp 16 18 16 16 B/P (MAP) 149/80 (103) 120/74 (89) 100/60 (73) Pulse Ox 95 95 96 O2 Delivery Room Air Room Air Room Air Room Air 03/16/18 03/16/18 03/16/18 07:00 08:05 09:05 Temp 98.0 98.0 Pulse 69 Resp 16 20 18 B/P (MAP) 119/55 (76) Pulse Ox 96 96 96 O2 Delivery Room Air Room Air Intake and Output 03/15/18 03/15/18 03/16/18 15:00 23:00 07:00 Intake Total 1720 ml Balance 1720 ml FRANCESCA HERNANDEZ III DO Mar 16, 2018 11:28
--- NOTE | 2018-03-16 11:56 | CARD ---
MR#: [id number] Date of Study: 03/16/2018 Ordering Physician: HUSSAIN WYLIE, Referring Physician: FRANCESCA EHRNANDEZ Tech: Arianna Daltahirelsa APPROVED REPORT EXAM: Two-dimensional and M-mode echocardiogram with Doppler and color Doppler. Other Information Quality : AverageHR: 59bpm INDICATION Chest Pain 2D DIMENSIONS RVDd2.8 (2.9-3.5cm)Left Atrium(2D)3.0 (1.6-4.0cm) IVSd1.0 (0.7-1.1cm)Aortic Root(2D)3.0 (2.0-3.7cm) LVDd4.7 (3.9-5.9cm)LVOT Diameter2.2 (1.8-2.4cm) PWd1.3 (0.7-1.1cm)LVDs2.8 (2.5-4.0cm) FS (%) 39.5 %SV70.6 ml LVEF(%)70.0 (>50%) Aortic Valve AoV Peak Jw.136.3cm/sAoV VTI25.8cm AO Peak GR.7.4mmHgLVOT Peak Jw.0.0cm/s LVOT VTI 19.82cmAO Mean GR.4mmHg REBECCA (VMAX)0.30vk1WRX (VTI)2.92cm2 Mitral Valve MV E Xvsnhzwd28.4cm/sMV DECEL PLQO951be MV CJG66erFQ A Isudnhkf459mw MVA (PHT)5.30cm2 TDI E/Lateral E'10.4E/Medial E'11.3 Pulmonary Valve PV Peak Yzganwws062.4cm/sPV Peak Grad.5mmHg Tricuspid Valve RAP XYRYRBJD1nhOq Pulmonary Vein S1 Qbqhgvrf35.2cm/sD2 Kmuluarn75.3cm/s PVa hevxjsrs04zdea LEFT VENTRICLE The left ventricle is normal size. There is borderline concentric left ventricular hypertrophy. The l eft ventricular systolic function is normal. The Ejection Fraction is 55-60%. There is normal LV segm ental wall motion. RIGHT VENTRICLE The right ventricle is normal size. There is normal right ventricular wall thickness. The right ventr icular systolic function is normal. ATRIA The left atrium size is normal. The right atrium size is normal. The interatrial septum is intact wit h no evidence for an atrial septal defect or patent foramen ovale as noted on 2-D or Doppler imaging. AORTIC VALVE The aortic valve is not well visualized. Doppler and Color Flow revealed trace aortic regurgitation. There is no significant aortic valvular stenosis. MITRAL VALVE The mitral valve is normal in structure and function. There is no mitral valve stenosis. Doppler and Color-flow revealed trace mitral regurgitation. TRICUSPID VALVE The tricuspid valve is not well visualized. Doppler and Color Flow revealed trace tricuspid regurgita tion. There is no tricuspid valve stenosis. PULMONIC VALVE The pulmonic valve is not well visualized. Doppler and Color Flow revealed trace pulmonic valvular re gurgitation. GREAT VESSELS The aortic root is normal in size. Normal pulmonary venous flow (Doppler). The IVC is normal in size and collapses >50% with inspiration. PERICARDIAL EFFUSION There is no evidence of significant pericardial effusion. Critical Notification Critical Value: No <Conclusion> The left ventricular systolic function is normal. The Ejection Fraction is 55-60%. There is normal LV segmental wall motion. Trace mitral regurgitation. Trace tricuspid regurgitation. There is no evidence of significant pericardial effusion. Signed by : Akash Tenorio, Electronically Approved : 03/16/2018 11:54:59
== END 2018-03-16 13:20 | disposition home or self-care (01) ==
LOC: ER 14:33 → CVICU 17:10
PROVIDERS: ADMIT Internal Medicine; ATTEND Internal Medicine
DX: R07.89 Other chest pain (principal); R42 Dizziness and giddiness; K21.9 Gastro-esophageal reflux disease without esophagitis; E66.9 Obesity, unspecified; E78.5 Hyperlipidemia, unspecified; F41.9 Anxiety disorder, unspecified; K51.90 Ulcerative colitis, unspecified, without complications; D35.02 Benign neoplasm of left adrenal gland; I20.9 Angina pectoris, unspecified; G47.00 Insomnia, unspecified; Z83.3 Family history of diabetes mellitus; Z90.710 Acquired absence of both cervix and uterus; Z82.49 Family history of ischemic heart disease and other diseases of the circulatory system
CPT/HCPCS: 36415; 71045; 71275; 74174; 80053; 80061; 81001; 82962; 83690; 83880; 84484; 85025; 85610; 93005; 93306; 99284; G0378; G0379; J7512; Q9967

== ENCOUNTER 2019-10-16 10:00 | Emergency (ER) | payer OTHER, MEDICARE ==
[~2019-10-16] VITALS: Ht 162.6 cm; Wt 90.0 kg
[~2019-10-16 10:00] MED LIST changes: +BUME1TAB3 PO; +CETI10TA24 PO; +CHOL10003 PO; +CLON-77 PO; -CLON0.5T11 PO; +CYAN-25 PO/SL; +DEXL60CA2 PO; +DIAZ5TAB PO; +DILT120C99 PO; +DIPH25CA58 PO; +EPIPEN0.3 MG/0.3 IM; +GABA300C18 PO; -GLIM2TAB2 PO; +GLIM2TAB7 PO; +INFL100V IV; +ISOS30TA4 PO; +LACT1CAP PO; +LIALDA1.2 GM PO; -MESA1.2T PO; +METH-37 PO; +NITR0.4T22 SL; +OXYC10TA PO; +PANT40GR PO; +POTA10TA12 PO; +PRED-220 PO; +PSYL1CAP4 PO; -RIZA10TA10 PO; +RIZA10TA91 PO; +SERT50TA8 PO; +VALIUM10 MG PO; +VEDO300V IV; +ZOLP6.252 PO; +[UNRECOGNIZED DRUG - OTHER]
[2019-10-16 10:16] VITALS: BP 145/69
--- NOTE | 2019-10-16 10:29 | PHYS DOC ---
Past Medical History Past Medical History: Anxiety, Arthritis, Bronchitis, CHF, Constipation, Depression, IBS, Other Additional Past Medical Histor: TBI X4 - W/ CHRONIC ESTRELLA'S, ULCERATIVE COLITIS, GERD, INTERSTITIAL CYSTITIS Past Surgical History: Cholecystectomy, Hysterectomy, Tonsillectomy, Other Additional Past Surgical Histo: MICHAELA. shoulder,ocular implants, cataracts,rt.lumpectomy,septum, bladder tumo Smoking Status: Former Smoker Alcohol Use: Occasionally Drug Use: None General Adult EDM: Chief Complaint: LACERATION/AVULSION HPI: HPI: 58-year-old female past medical history of ulcerative colitis on Entyvio, presents to the ED with complaints of actually cutting her left nondominant wrist with a pushcart peddler knife while she was holding a bag that she was cutting. Reports her tetanus is up-to-date. Reports this was an accident, no intention to harm herself. Review of systems: No associated fever, chills, cough, dyspnea, sore throat, nausea, vomiting, chest pain, sensory, motor or neuro deficits of left hand. Allergies: Allergies: Allergies Coded Allergies Type Severity Reaction Last Updated Verified pregabalin Allergy Severe unclear 11/02/14 Yes Sulfa (Sulfonamide Antibiotics) Allergy Intermediate unknown 11/02/14 Yes acetaminophen Allergy Intermediate unknown 11/02/14 Yes adhesive Allergy Intermediate 11/02/14 Yes amitriptyline Allergy Intermediate unknown 11/02/14 Yes budesonide Allergy Intermediate unknown 11/02/14 Yes chocolate flavor Allergy Intermediate sneeze, throat burn 11/02/14 Yes mirtazapine Allergy Intermediate unknown 11/02/14 Yes povidone-iodine Allergy Intermediate burning skin 11/02/14 Yes quetiapine Allergy Intermediate unknown 11/02/14 Yes tramadol Allergy Intermediate unknown 11/02/14 Yes alprazolam Allergy Unknown 04/27/19 Yes butalbital Allergy Unknown 04/27/19 Yes caffeine Allergy Unknown 04/27/19 Yes clotrimazole Allergy Unknown 04/27/19 Yes duloxetine Allergy Unknown 04/27/19 Yes indomethacin Allergy Unknown 04/27/19 Yes latex Allergy Unknown 04/27/19 Yes neomycin Allergy Unknown 04/27/19 Yes phenol Allergy Unknown 04/27/19 Yes topiramate Allergy Unknown 04/27/19 Yes NSAIDS (Non-Steroidal Anti-Inflamma Adverse Reaction Severe GIBLEED 11/02/14 Yes aspirin Adverse Reaction Severe gi bleeding 11/02/14 Yes fluoxetine Adverse Reaction Severe "made me want to cut my skin off with a knife" 11/02/14 Yes ibuprofen Adverse Reaction Severe GI BLEEDING 11/02/14 Yes trazodone Adverse Reaction Severe severe chest pain 11/02/14 Yes azathioprine Adverse Reaction Intermediate 04/27/19 Yes erythromycin base Adverse Reaction Intermediate vomit 11/02/14 Yes regadenoson Adverse Reaction Intermediate HEAD PAIN, SEVERE LEG PAIN, WEAKNESS, COULD NOT STAND OR 04/27/19 Yes Uncoded Allergies Type Severity Reaction Last Updated Verified STEROIDS Adverse Reaction Unknown 04/27/19 Physical Exam: PE: Constitutional: Well developed, well nourished, no acute distress, non-toxic appearance. [] HENT: Normocephalic, atraumatic, bilateral external ears normal, oropharynx moist, no oral exudates, nose normal. [] Eyes: PERRLA, EOMI, conjunctiva normal, no discharge. [] Neck: Normal range of motion, no tenderness, supple, no stridor. [] Cardiovascular:Heart rate regular rhythm, no murmur [] Lungs & Thorax: Bilateral breath sounds clear to auscultation [] Abdomen: Bowel sounds normal, soft, no tenderness, no masses, no pulsatile masses. [] Skin: Warm, dry, no erythema, no rash. [] Back: No tenderness, no CVA tenderness. [] Extremities: No tenderness, no cyanosis, no clubbing, ROM intact, no edema.3.5 centimeters laceration of her left distal wrist over ulnar styloid, subcutaneous fat visualized, no bone palpable, pt with FROM wrist/finger ROM before and after laceration repair Neurologic: Alert and oriented X 3, normal motor function, normal sensory function, no focal deficits noted. [] Psychologic: Affect normal, judgement normal, mood normal. [] Current Patient Data: Vital Signs: Vital Signs Date Time Temp Pulse Resp B/P (MAP) Pulse Ox O2 Delivery O2 Flow Rate FiO2 10/16/19 10:16 98.7 74 18 145/69 (94) 97 Room Air 98.7 EKG: EKG: [] Radiology/Procedures: Radiology/Procedures: Indication: 3.5 cm laceration over left distal wrist, ulnar aspect Procedure: The patient was placed in the appropriate position and anesthesia around the laceration with bupivacaine. The area was then copiously irrigated with normal saline, no foreign body notified. The laceration was closed with 4-0 Prolene, . 5 sutures with wound approximation the wound area was then dressed with bacitracin, nonstick dressing and sterile dressings The patient tolerated the procedure Complications: None. IMAGING REPORT Signed PATIENT: MENG SMITH ACCOUNT: [id number] : 1960 LOCATION: ER AGE: 58 SEX: F EXAM STATUS: REG ER ORD. PHYSICIAN: CLAY ERIC DO REASON: laceration PROCEDURE: WRIST 2V LEFT AP and lateral views of the left wrist no comparison. INDICATION: Laceration. FINDINGS: There is diffuse osteopenia and mild degenerative change. No radiopaque retained subcutaneous foreign body. There is mild subcutaneous swelling as well as possibly some air over the ulnar styloid region. Electronically signed by: Hernandez Adams MD (10/16/2019 11:29 AM) [id number] DICTATED and SIGNED BY: HERNANDEZ ADAMS MD DATE: 10/16/19 1129 Impression: Concern for left distal laceration 3.5 cm over ulnar styloid, imaging with no fracture. Laceration now repaired. Suture removal in 7 to 10 days. Wound care instructions given. Strict ED return precautions given for fever, redness or swelling. Encourage urgent PMD follow-up. All of her questions were answered and she was stable at time of discharge. Course & Med Decision Making: Course & Med Decision Making Pertinent Labs and Imaging studies reviewed. (See chart for details) [] Dragon Disclaimer: Dragon Disclaimer: This electronic medical record was generated, in whole or in part, using a voice recognition dictation system. Departure Departure Impression: Primary Impression: Laceration of wrist, left Disposition: HOME, SELF-CARE Condition: STABLE Referrals: AGA CHOI MD (PCP) Patient Instructions: Laceration Care, Adult Justicifation of Admission Dx: Justifications for Admission: Justification of Admission Dx: N/A CLAY ERIC DO Oct 16, 2019 10:29
[2019-10-16] MEDS ORDERED: BUPIVACAINE MPF 0.5% 30 ML VIAL. INJ ONE (10:30)
[2019-10-16] MEDS ORDERED: BACITRACIN/POLYMYXIN B TOPICAL OINT 28.3GM TUBE. TP ONE (11:19)
--- NOTE | 2019-10-16 11:32 | RAD ---
AP and lateral views of the left wrist no comparison. INDICATION: Laceration. FINDINGS: There is diffuse osteopenia and mild degenerative change. No radiopaque retained subcutaneous foreign body. There is mild subcutaneous swelling as well as possibly some air over the ulnar styloid region. Electronically signed by: Hernandez Adams MD (10/16/2019 11:29 AM) [id number]
== END 2019-10-16 12:17 | disposition home or self-care (01) ==
LOC: ER 10:00
DX: S61.512A Laceration without foreign body of left wrist, initial encounter (principal); R50.9 Fever, unspecified; R60.0 Localized edema; F41.9 Anxiety disorder, unspecified; M19.90 Unspecified osteoarthritis, unspecified site; I50.9 Heart failure, unspecified; F32.9 Major depressive disorder, single episode, unspecified; Z90.710 Acquired absence of both cervix and uterus; Z90.49 Acquired absence of other specified parts of digestive tract; Z87.891 Personal history of nicotine dependence; Z88.0 Allergy status to penicillin; Z88.1 Allergy status to other antibiotic agents; Z88.6 Allergy status to analgesic agent; Z88.8 Allergy status to other drugs, medicaments and biological substances; Z88.5 Allergy status to narcotic agent; W26.0XXA Contact with knife, initial encounter; Y93.89 Activity, other specified; Y92.89 Other specified places as the place of occurrence of the external cause; Y99.8 Other external cause status
CPT/HCPCS: 12002; 73100; 99283; J3490